=== PATIENT | female | born 1980 | race Caucasian/White ===

== ENCOUNTER 2022-09-02 17:34 | Emergency (ER) | payer SELFPAY ==
[2022-09-02] MEDS ORDERED: Ondansetron 4 MG/2 ML SDV IVPUSH ONE (18:05)
[2022-09-02] MEDS ORDERED: HYDROmorphone 1 MG/ML Syringe IVPUSH ONE ×2 (18:05→20:52)
[2022-09-02 18:32] LABS: CARBON DIOXIDE,CO2 23.8 mmol/L (21.0-32.0); POTASSIUM,K 3.6 mmol/L (3.5-5.1)
[2022-09-02] MEDS ORDERED: Iopamidol 755 MG/ML 500 ML Multipack Bottle IVPUSH STA (19:26)
== END 2022-09-03 01:20 | disposition home or self-care (01) ==
LOC: MW.ED 17:34
DX: R10.31 Right lower quadrant pain (principal); R10.32 Left lower quadrant pain
CPT/HCPCS: 36415; 74177; 76830; 80053; 81001; 83605; 83690; 83735; 84703; 85025; 96374; 96375; 96376; 99284; J1170; J2405; Q9967